=== PATIENT | female | born 1970 | race Two or more races ===

== ENCOUNTER 2023-09-27 05:15 | Day surgery (SDC) | payer OTHER ==
[2023-09-23 11:44] LABS: URINE APPEARANCE Clear; URINE BILIRRUBIN Negative (NEGATIVE); URINE BLOOD Negative; URINE COLOR Yellow; URINE GLUCOSE Negative (NEGATIVE); URINE LEUKOCYTE Negative; URINE NITRATE Negative; URINE PROTEIN Negative (NEGATIVE); URINE UROBILINOGEN 0.2 E.U./dl
[2023-09-23 11:50] LABS: URINE BACTERIA 36.5 uL (0.0-1933); URINE EPITHELIAL CELLS 3.5 uL (0.0-38.8); URINE RBC 3.3 uL (0.0-20.8); URINE WBC 1.8 uL (0.0-23.2)
[2023-09-23 12:12] LABS: INR 1.02; PARTIAL THROMBOPLASTIN TIME 34.4 SECONDS (22.0-34.0); PROTHROMBIN TIME 10.7 SECONDS (9.0-11.5)
[~2023-09-27 05:15] MED LIST: AMBIEN10 MG PO; CLONAZEPAM0.5 M1 PO
[2023-09-27] MEDS ORDERED: POVIDONE-IODINE 118 ML BOTT TOP ONE ×2 (11:59→12:30)
[2023-09-27] MEDS ORDERED: ONDANSETRON HCL 2 MG/ML VIAL IV ONE (13:00)
== END 2023-09-27 16:15 | disposition home or self-care (01) ==
LOC: CIR.AMB 05:15
PROVIDERS: ATTEND Obstetrics & Gynecology
DX: N95.0 Postmenopausal bleeding (principal); N84.0 Polyp of corpus uteri; Z91.041 Radiographic dye allergy status; Z88.8 Allergy status to other drugs, medicaments and biological substances

== ENCOUNTER 2024-02-03 09:30 | Inpatient (IN) | payer OTHER ==
[~2024-02-03] VITALS: Ht 167.6 cm; Wt 65.8 kg
[2024-02-03] MEDS ORDERED: RESTORIL30 M1 PO (10:45)
[2024-02-03] MEDS ORDERED: CRESTOR40 MG PO (10:45)
[2024-02-03] MEDS ORDERED: CLONAZEPAM0.5 M1 PO (10:46)
[2024-02-03 11:09] LABS: HEMATOCRIT 39.7 % (36.0-45.00); HEMOGLOBIN 13.4 g/dL (12.0-15.00); MEAN CELL VOLUME 89.8 fL (80.00-100.00); MEAN CORPUSCULAR HEMOGLOBIN 30.4 pg (27.00-32.0); MEAN CORPUSCULAR HGB CONC 33.8 g/dl (32.0-36.0); PLATELET COUNT 351 K/uL (150-450); RED BLOOD COUNT 4.42 M/uL (4.00-6.00); RED CELL DISTRIBUTION WIDTH 14.6 % (11.5-14.5)
[2024-02-03 11:31] LABS: PH,URINE 5.5 (5.0-8.0); URINE APPEARANCE Clear; URINE BILIRRUBIN Negative (NEGATIVE); URINE BLOOD Small; URINE COLOR Yellow; URINE GLUCOSE Negative (NEGATIVE); URINE LEUKOCYTE Negative; URINE NITRATE Negative; URINE PROTEIN Negative (NEGATIVE); URINE UROBILINOGEN 0.2 E.U./dl
[2024-02-03 11:32] LABS: URINE BACTERIA 50.3 uL (0.0-1933); URINE EPITHELIAL CELLS 8.1 uL (0.0-38.8); URINE RBC 4.4 uL (0.0-20.8); URINE WBC 3.7 uL (0.0-23.2)
[2024-02-03 11:41] LABS: INR 1.01; PARTIAL THROMBOPLASTIN TIME 30.7 SECONDS (22.0-34.0); PROTHROMBIN TIME 10.6 SECONDS (9.0-11.5)
[2024-02-03 12:13] LABS: ALBUMIN 4.2 gm/dL (3.4-5.0); BILIRUBIN TOTAL 0.39 mg/dL (0.3-1.2); CALCIUM 9.9 mg/dL (8.5-10.1); CREATININE SERUM 0.71 mg/dL (0.55-1.02); GFR 85.78; GLOBULINA 3.9 G/DL (2.4-3.5); POTASSIUM 4.19 mEq/L (3.5-5.1); TOTAL PROTEIN 8.1 gm/dL (6.4-8.2)
[2024-02-07] MEDS ORDERED: POVIDONE-IODINE 118 ML BOTT TOP ONE (12:17)
[2024-02-07] MEDS ORDERED: CEFAZOLIN SODIUM 1,000 MG VIAL ONE (12:17)
[2024-02-07] MEDS ORDERED: MEPERIDINE HCL/PF 50 MG/ML VIAL IV SCH (16:00)
[2024-02-07] MEDS ORDERED: PROMETHAZINE HCL 25 MG/ML AMPUL IV SCH (16:00)
[2024-02-07] MEDS ORDERED: PROMETHAZINE HCL 50 MG/ML AMPUL IM ONE (16:07)
[2024-02-07 18:39] LABS: HEMATOCRIT 37.4 % (36.0-45.00); HEMOGLOBIN 12.5 g/dL (12.0-15.00); MEAN CELL VOLUME 91.9 fL (80.00-100.00); MEAN CORPUSCULAR HEMOGLOBIN 30.8 pg (27.00-32.0); MEAN CORPUSCULAR HGB CONC 33.5 g/dl (32.0-36.0); PLATELET COUNT 249 K/uL (150-450); RED BLOOD COUNT 4.07 M/uL (4.00-6.00); RED CELL DISTRIBUTION WIDTH 13.9 % (11.5-14.5)
[2024-02-08] MEDS ORDERED: IBUprofen 800 MG TABLET PO SCH (02:00)
[2024-02-08] MEDS ORDERED: SIMETHICONE 125 MG CAPSULE PO SCH (05:00)
[2024-02-08] MEDS ORDERED: POLYETHYLENE GLYCOL 3350 17 GM BLIST.PACK PO SCH (05:00)
[2024-02-08] MEDS ORDERED: GABAPENTIN 300 MG CAPSULE PO SCH (05:00)
[2024-02-09] MEDS ORDERED: POLY119PG PO (06:26)
[2024-02-09] MEDS ORDERED: IBUPROFEN800 MG PO (06:26)
[2024-02-09] MEDS ORDERED: SIMETHICONE125 M1 PO (06:26)
[2024-02-09] MEDS ORDERED: GABAPENTIN300 MG PO (06:26)
[2024-02-09] MEDS ORDERED: ALPRAzolam 1 MG TABLET PO SCH (21:00)
[2024-02-09] MEDS ORDERED: CLONAZEPAM 1 MG TABLET PO SCH (21:00)
== END 2024-02-09 09:40 | disposition home or self-care (01) | DRG 743 ==
LOC: O/R 02-07 05:30 → SURH 02-07 07:00 → OB/GYN 02-07 13:58
PROVIDERS: ADMIT Obstetrics & Gynecology; ATTEND Obstetrics & Gynecology
PROC: 0UT90ZZ Resection of Uterus, Open Approach (ICD-10-PCS; principal; 2024-02-07 07:00)
DX: N80.03 Adenomyosis of the uterus (principal); Z20.822 Contact with and (suspected) exposure to COVID-19

== ENCOUNTER 2024-02-14 11:36 | Emergency (ER) | payer OTHER ==
[~2024-02-14] VITALS: Ht 167.6 cm; Wt 68.0 kg
[~2024-02-14 11:36] MED LIST changes: +CRESTOR40 MG PO; +GABAPENTIN300 MG PO; +IBUPROFEN800 MG PO; +POLY119PG PO; +RESTORIL30 M1 PO; +SIMETHICONE125 M1 PO
[2024-02-14] MEDS ORDERED: XANAX1 MG PO (11:50)
[2024-02-14] MEDS ORDERED: XANAX2 MG PO (11:50)
[2024-02-14 15:47] LABS: HEMATOCRIT 30.9 % (36.0-45.00); HEMOGLOBIN 10.8 g/dL (12.0-15.00); MEAN CELL VOLUME 91.7 fL (80.00-100.00); MEAN CORPUSCULAR HEMOGLOBIN 32.2 pg (27.00-32.0); MEAN CORPUSCULAR HGB CONC 35.1 g/dl (32.0-36.0); PLATELET COUNT 358 K/uL (150-450); RED BLOOD COUNT 3.37 M/uL (4.00-6.00)
[2024-02-14 15:57] LABS: PH,URINE 5.5 (5.0-8.0); URINE APPEARANCE Clear; URINE BILIRRUBIN Negative (NEGATIVE); URINE BLOOD Negative; URINE COLOR Yellow; URINE GLUCOSE Negative (NEGATIVE); URINE KETONE Negative (NEGATIVE); URINE LEUKOCYTE Negative; URINE NITRATE Negative; URINE PROTEIN Negative (NEGATIVE); URINE UROBILINOGEN 0.2 E.U./dl
[2024-02-14 16:05] LABS: URINE EPITHELIAL CELLS 9.1 uL (0.0-38.8); URINE RBC 5.1 uL (0.0-20.8)
[2024-02-14 16:11] LABS: CALCIUM 8.9 mg/dL (8.5-10.1); CREATININE SERUM 0.54 mg/dL (0.55-1.02); GFR 117.65; POTASSIUM 4.07 mEq/L (3.5-5.1)
[2024-02-14 16:12] LABS: URINE WBC 1.3 uL (0.0-23.2)
[2024-02-14] MEDS ORDERED: MEPERIDINE HCL 25 MG/ML AMPUL IV ONE (16:15)
[2024-02-14] MEDS ORDERED: TAMSULOSIN HCL 0.4 MG CAP PO ONE (17:00)
[2024-02-14] MEDS ORDERED: TAMS0.4C PO (19:02)
== END 2024-02-14 20:17 | disposition home or self-care (01) ==
LOC: ER 11:37
PROVIDERS: Emergency Medicine
DX: R33.8 Other retention of urine (principal); Z91.040 Latex allergy status; Z88.8 Allergy status to other drugs, medicaments and biological substances